=== PATIENT | male | born 1970 | race Caucasian/White ===

== ENCOUNTER 2019-04-11 11:04 | Inpatient (IN) | payer MEDICARE ==
[~2019-04-11] VITALS: Ht 181.6 cm; Wt 88.3 kg
--- NOTE | ~2019-04-11 | EKG ---
[place], [place] ELECTROCARDIOGRAM REPORT NAME: JAM CALIX UNIT #: [id number] ROOM: 532 DOCTOR: ROSARIO DRAFT REPORT BIRTHDATE: [birth year] [facility] Test Date: 2019-04-11 Test Time: 15:58:55 Pat Name: JAM CALIX Department: Room: [facility] 1 Gender: M Supervisor Residential: : [id number] Requested By: ANNY HARRIS Order Number: [id number] Reading MD: Angélica Tobias MD Measurements Intervals [place] Rate: 74 P: 62 TX: 178 QRS: 85 QRSD: 114 T: 72 QT: 582 QTc: 646 Interpretive Statements Sinus rhythm Probable left atrial enlargement Left ventricular hypertrophy Prolonged QT interval Baseline wander in lead(s) II,III,aVF,V2,V4 No previous ECG available for comparison Electronically Signed On 04-12-2019 11:49:26 PDT by Angélica Tobias MD CM:EKGRPT:ELECTROCARDIOGRAM REPORT [id number] ANNY HARRIS EPIPHANY DRAFT REPORT ANNY HARRIS
[2019-04-11 11:05] VITALS: BP 154/104
--- NOTE | 2019-04-11 11:25 | NUR ---
PATIENT MET WITH [place] STAFF IN OFFICE. PATIENT MEETS [facility] CRITERIA. CINA=15. PATIENT WANTS TO FOLLOW UP WITH [facility] FOR HIS AFTERCARE PLAN. KEREN JARA B.A. BELLOWS TESTER
[2019-04-11 12:22] VITALS: BP 143/95
--- NOTE | 2019-04-11 12:40 | NUR ---
Time: 1222 A 48 year old MALE admitted to 5E under services of MARIZA FERRO DO. Pt. arrived via wheel chair from ER. Chief complaint: [facility] FOR OPIOID USE DISORDER . JB MARTINEZ
[2019-04-11] MEDS ORDERED: AMLODIPINE BESYL5 MG PO (12:45)
[2019-04-11] MEDS ORDERED: CITALOPRAM20 MG PO (12:45)
[2019-04-11 12:57] LABS: BASO # 0.1 10*3/uL (0.0-0.1); BASO % 0.6 % (0.0-1.0); EOS # 0.1 10*3/uL (0.0-0.4); EOS % 0.9 % (1.0-4.0); HEMATOCRIT 47.5 % (42.0-52.0); HEMOGLOBIN 15.9 g/dl (14.0-18.0); LYMPH # 2.3 10*3/uL (1.3-4.4); LYMPH % 25.4 % (27.0-41.0); MEAN CORPUSCULAR HGB 30.1 pg (27.0-31.0); MEAN CORPUSCULAR HGB CONC 33.5 g/dl (33.0-37.0); MEAN PLATELET VOLUME 9.4 fl (9.6-12.3); MONO # 0.5 10*3/uL (0.1-1.0); MONO % 5.9 % (3.0-9.0); NEUT % 66.9 % (47.0-73.0); PLATELET COUNT AUTOMATED 287 10*3/uL (130-400); RED BLOOD COUNT 5.28 10*6/uL (4.50-5.90); RED CELL DISTRI WIDTH 12.5 % (0-14.5)
[2019-04-11 13:11] LABS: ALBUMIN 4.4 gm/dl (3.1-4.5); ALKALINE PHOSPHATASE 72 U/L (45-117); BUN 17 mg/dl (7-24); CHLORIDE 109 mmol/L (98-107); CREATININE 0.97 mg/dL (0.70-1.30); POTASSIUM 4.3 mmol/L (3.5-5.1); SGOT/AST 40 IU/L (3-35); SGPT/ALT 76 U/L (12-78); SODIUM 142 mmol/L (136-145); TOTAL PROTEIN 8.6 gm/dL (6.4-8.2)
[2019-04-11 13:12] LABS: ETHYL ALCOHOL < 3.0 mg/dl (<3)
[2019-04-11 13:36] LABS: BILIRUBIN NEGATIVE (NEGATIVE); BLOOD NEGATIVE (NEGATIVE); CLARITY CLEAR (CLEAR); COLOR YELLOW (YELLOW); GLUCOSE NEGATIVE (NEGATIVE); KETONE NEGATIVE (NEGATIVE); LEUKO ESTERASE NEGATIVE (NEGATIVE); NITRITE NEGATIVE (NEGATIVE); PH 6.5 (5.0-9.0); SPECIFIC GRAVITY 1.025 (1.005-1.030)
[2019-04-11 13:44] LABS: URINE AMPHETAMINES < 1000 (1000ng/ml); URINE BARBITURATES < 200 (200ng/ml); URINE BENZODIAZEPINES < 200 (200ng/ml); URINE CANNABINOIDS (THC) < 50 (50ng/ml); URINE COCAINE > 300 (300ng/ml); URINE METHADONE < 300 (300ng/ml); URINE OPIATES > 300 (300ng/ml)
[2019-04-11 13:45] LABS: URINE PHENCYCLIDINE < 25 (25ng/ml)
[2019-04-11 16:00] VITALS: BP 129/77
--- NOTE | 2019-04-11 16:13 | NUR ---
ATTEMPTED TO NOTIFY DR RENTERIA. AWAITING RETURN CALL FROM [facility].
--- NOTE | 2019-04-11 18:31 | NUR ---
ROBAXIN 750 MG AND VISTARIL 50 MG GIVEN FOR RESTLESS LEGS AND ANXIETY.
[2019-04-11 20:00] VITALS: BP 142/85
--- NOTE | 2019-04-11 20:50 | NUR ---
REQUIP GIVEN PER ORDER FOR COMPLAINTS OF RESTLESS LEGS. WILL CONTINUE TO MONITOR AND REASESS.
--- NOTE | 2019-04-11 21:30 | NUR ---
REQUIP EFFECTIVE FOR RESTLESS LEGS. PT RESTING COMFORTABLY WITH CALL LIGHT IN REACH.
[2019-04-12] VITALS: BP 126/78
--- NOTE | 2019-04-12 03:52 | NUR ---
24 HR chart check completed.
--- NOTE | 2019-04-12 09:33 | NUR ---
ЮЛИЯ DAVIS SALVAGE MEND WORKER ROUNDED AND PT WAS MISSING FOR 15 MIN AND HAD LEFT FLOOR. PATIENT WAS SEEN SMOKING ON CORNER OF [address] AND [address] SMOKING WITH GIRLFRIEND WHO WAS VISITING.PER ЮЛИЯ'S ORDER PT HAD TO LEAVE PER PROTOCOL AND [facility] RULES.PT LEFT AMA AT THIS TIME. EDUCATION PROVIDED WELL [facility] INFORMATION.
== END 2019-04-12 09:33 | disposition left against medical advice (07) | DRG 894 ==
LOC: ED 11:04 → EDHOLD 11:27 → 5E 11:27
PROVIDERS: Registered Nurse; ADMIT Internal Medicine
DX: F11.23 Opioid dependence with withdrawal (principal); E87.8 Other disorders of electrolyte and fluid balance, not elsewhere classified; R74.0 Nonspecific elevation of levels of transaminase and lactic acid dehydrogenase [LDH]; F14.10 Cocaine abuse, uncomplicated; Z53.21 Procedure and treatment not carried out due to patient leaving prior to being seen by health care provider; I10 Essential (primary) hypertension; F32.9 Major depressive disorder, single episode, unspecified; Z79.899 Other long term (current) drug therapy